=== PATIENT | male | born 1965 | race Caucasian/White ===

== ENCOUNTER 2025-07-07 15:04 | Emergency (ER) | payer MEDICARE, OTHER ==
[~2025-07-07] VITALS: Ht 167.6 cm; Wt 101.8 kg
[~2025-07-07 15:04] MED LIST: ASEN5TAB11 SL; BENZ2TAB58 PO; BIMA5DRO OU; BRIM5DRO32 OS; CLON-592 PO; DIVA-153 PO; LISI-892 PO; MIRT-89 PO; RANI150T7 PO; TRIL8 PO
[2025-07-07 15:05] VITALS: TEMP 99.5
[2025-07-07] MEDS: BACITRACIN 0.9 GM PACKET OINTMENT TP ONE (16:20)
[2025-07-07] MEDS ORDERED: BACI28.410 TP (16:36)
[2025-07-07 16:42] VITALS: BP 139/87; PULSE 81; RESP 18; O2SAT 97
== END 2025-07-07 16:49 | disposition home or self-care (01) ==
LOC: EMS 15:04
DX: L30.9 Dermatitis, unspecified (principal); L02.31 Cutaneous abscess of buttock; F20.9 Schizophrenia, unspecified; F32.A Depression, unspecified; F17.210 Nicotine dependence, cigarettes, uncomplicated; Z79.899 Other long term (current) drug therapy; Z91.030 Bee allergy status
CPT/HCPCS: 99282; Z7502; Z7610